=== PATIENT | female | born 1970 | race American Indian/Alaskan Native ===

== ENCOUNTER 2021-02-02 16:56 | Emergency (ER) | payer SELFPAY ==
--- NOTE | 2021-02-02 18:51 | Emergency Department Report ---
ED Back Pain/Injury HPI - General Chief Complaint: Extremity Injury, Lower Stated Complaint: BACK PAIN Time Seen by Provider: 02/02/21 18:37 Source: patient Limitations: No Limitations - History of Present Illness Initial Comments: Patient is a 50-year-old female emergency room with complaints of sciatica exacerbation that began yesterday. She states that she has a history of left- sided sciatica. She states that she has been seeing her primary care doctor and is currently taking medications but she is not sure what she is taking. She states that she has been on these medications for several months. She states that the pain is in her left lower back and radiates down her left leg. She denies any fall or injury. She denies any fever, nausea, vomiting, diarrhea, urinary symptoms, abdominal pain, numbness, weakness, bowel or bladder incontinence, saddle numbness. She denies any other past medical history. No allergies to medications. She denies any history of diabetes. - Related Data Previous Rx's Medication Instructions Recorded Last Taken Type Menthol/Camphor [[place] 1 applicatio TP BID #18 oint...g. 02/02/21 Unknown Rx Ointment] Prednisone [predniSONE 10 mg 10 mg PO .TAPER #1 tab.ds.pk 02/02/21 Unknown Rx (6-Day Pack, 21 Tabs)] methOCARBAMOL [Robaxin TAB] 500 mg PO BID PRN #20 tab 02/02/21 Unknown Rx traMADoL [Ultram 50 MG tab] 50 mg PO Q6HR PRN #12 tablet 02/02/21 Unknown Rx Allergies Allergy/AdvReac Type Severity Reaction Status Date / Time No Known Allergies Allergy Verified 02/02/21 17:27 ED Review of Systems ROS: Stated complaint: BACK PAIN Other details as noted in HPI Comment: All other systems reviewed and negative ED Past Medical Hx - Medications Home Medications: Home Medications Medication Instructions Recorded Confirmed Last Taken Type Menthol/Camphor [[place] 1 applicatio TP BID #18 oint...g. 02/02/21 Unknown Rx Ointment] Prednisone [predniSONE 10 mg 10 mg PO .TAPER #1 tab.ds.pk 02/02/21 Unknown Rx (6-Day Pack, 21 Tabs)] methOCARBAMOL [Robaxin TAB] 500 mg PO BID PRN #20 tab 02/02/21 Unknown Rx traMADoL [Ultram 50 MG tab] 50 mg PO Q6HR PRN #12 tablet 02/02/21 Unknown Rx ED Physical Exam - General Limitations: No Limitations General appearance: alert, in no apparent distress - Head Head exam: Present: atraumatic, normocephalic - Eye Eye exam: Present: normal appearance - ENT ENT exam: Present: mucous membranes moist - Neck Neck exam: Present: normal inspection, full ROM. Absent: tenderness, meningismus - Respiratory Respiratory exam: Present: normal lung sounds bilaterally. Absent: respiratory distress, wheezes, rales, rhonchi, stridor, chest wall tenderness, accessory muscle use, decreased breath sounds, prolonged expiratory - Cardiovascular Cardiovascular Exam: Present: regular rate, normal rhythm, normal heart sounds. Absent: systolic murmur, diastolic murmur, rubs, gallop - Back Exam Back exam: Present: normal inspection, full ROM, paraspinal tenderness (left lumbar paraspinal ttp, no midline C-spine, T-spine or L-spine ttp, no step offs, no deformities ). Absent: vertebral tenderness - Neurological Exam Neurological exam: Present: alert, oriented X3, CN II-XII intact, normal gait. Absent: motor sensory deficit - Psychiatric Psychiatric exam: Present: normal affect, normal mood - Skin Skin exam: Present: warm, dry, intact ED Course Vital Signs 02/02/21 17:27 Temperature 98.6 F Pulse Rate 98 H Respiratory 12 Rate Blood Pressure 141/102 [Left] O2 Sat by Pulse 100 Oximetry ED Medical Decision Making - Medical Decision Making Patient is a 50-year-old female emergency room with complaints of sciatica exacerbation that began yesterday. She states that she has a history of left- sided sciatica. She states that she has been seeing her primary care doctor and is currently taking medications but she is not sure what she is taking. She states that she has been on these medications for several months. She states that the pain is in her left lower back and radiates down her left leg. She denies any fall or injury. She denies any fever, nausea, vomiting, diarrhea, urinary symptoms, abdominal pain, numbness, weakness, bowel or bladder incontinence, saddle numbness. She denies any other past medical history. No allergies to medications. She denies any history of diabetes. VSS. on exam: left lumbar paraspinal ttp, no midline C-spine, T-spine or L-spine ttp, no step offs, no deformities, no focal neuro deficits. Patient has no red flag warning signs of back pain, no trauma, no unexplained weight loss, no fever, no IV drug use, no steroid use, no history of cancer. She has no midline tenderness, no step-offs, no deformities, she is ambulatory without difficulty. Patient given prescription for medications. Advised patient Please use medication as prescribed. Do not drive or operate machinery while taking muscle relaxer or severe pain medication. May use ice pack, heating pad, rest, epsom salt bath. Follow-up with a primary care doctor. Follow-up with orthopedic/spine doctor. Do not use heat or ice while using tiger balm. Return to emergency room for new or worsening symptoms. Critical care attestation.: If time is entered above; I have spent that time in minutes in the direct care of this critically ill patient, excluding procedure time. ED Disposition Clinical Impression: Low back pain Qualifiers: Chronicity: acute Back pain laterality: left Sciatica presence: with sciatica Sciatica laterality: sciatica of left side Qualified Code(s): M54.42 - Lumbago with sciatica, left side Disposition: - TO HOME OR SELFCARE Is pt being admited?: No Does the pt Need Aspirin: No Condition: Stable Instructions: Sciatica Additional Instructions: Please use medication as prescribed. Do not drive or operate machinery while taking muscle relaxer or severe pain medication. May use ice pack, heating pad, rest, epsom salt bath. Follow-up with a primary care doctor. Follow-up with orthopedic/spine doctor. Do not use heat or ice while using tiger balm. Return to emergency room for new or worsening symptoms. Prescriptions: Prednisone [predniSONE 10 mg (6-Day Pack, 21 Tabs)] 10 mg PO .TAPER #1 tab.ds.pk methOCARBAMOL [Robaxin TAB] 500 mg PO BID PRN #20 tab PRN Reason: muscle spasm/pain Menthol/Camphor [[place] Ointment] 1 applicatio TP BID #18 oint...g. traMADoL [Ultram 50 MG tab] 50 mg PO Q6HR PRN #12 tablet PRN Reason: Pain , Severe (7-10) Referrals: [facility] [Provider Group] - 3-5 Days LUIZ ARCHER II, MD [Staff Physician] - 3-5 Days Time of Disposition: 18:49 Print Language: AFGHAN
== END 2021-02-02 19:06 | disposition home or self-care (01) ==
LOC: ED 16:56
CPT/HCPCS: 99281

== ENCOUNTER 2021-02-10 18:47 | Emergency (ER) | payer MEDICAID ==
--- NOTE | 2021-02-10 21:15 | Emergency Department Report ---
- General Chief complaint: Wound/Laceration Stated complaint: BEE STING Time Seen by Provider: 02/10/21 20:57 Source: patient Mode of arrival: Ambulatory Limitations: No Limitations - History of Present Illness Initial comments: Patient is a 50-year-old female presents emergency room with complaints of a sting present to the left upper arm that occurred earlier today. She states that she believes it was a hornet. She states that she was concerned that the stinger may still be in the arm. She denies any rash, swelling, itching, fever, vomiting. She denies any medication allergies. - Related Data Previous Rx's Medication Instructions Recorded Last Taken Type Menthol/Camphor [[place] 1 applicatio TP BID #18 oint...g. 02/02/21 Unknown Rx Ointment] Prednisone [predniSONE 10 mg 10 mg PO .TAPER #1 tab.ds.pk 02/02/21 Unknown Rx (6-Day Pack, 21 Tabs)] methOCARBAMOL [Robaxin TAB] 500 mg PO BID PRN #20 tab 02/02/21 Unknown Rx traMADoL [Ultram 50 MG tab] 50 mg PO Q6HR PRN #12 tablet 02/02/21 Unknown Rx Allergies Allergy/AdvReac Type Severity Reaction Status Date / Time No Known Allergies Allergy Verified 02/02/21 17:27 Abscess Boil HPI - HPI Chief Complaint: Wound/Laceration Stated Complaint: BEE STING Time Seen by Provider: 02/10/21 20:57 Home Medications: Previous Rx's Medication Instructions Recorded Last Taken Type Menthol/Camphor [[place] 1 applicatio TP BID #18 oint...g. 02/02/21 Unknown Rx Ointment] Prednisone [predniSONE 10 mg 10 mg PO .TAPER #1 tab.ds.pk 02/02/21 Unknown Rx (6-Day Pack, 21 Tabs)] methOCARBAMOL [Robaxin TAB] 500 mg PO BID PRN #20 tab 02/02/21 Unknown Rx traMADoL [Ultram 50 MG tab] 50 mg PO Q6HR PRN #12 tablet 02/02/21 Unknown Rx Allergies/Adverse Reactions: Allergies Allergy/AdvReac Type Severity Reaction Status Date / Time No Known Allergies Allergy Verified 02/02/21 17:27 ED Review of Systems ROS: Stated complaint: BEE STING Other details as noted in HPI Comment: All other systems reviewed and negative ED Past Medical Hx - Past Medical History Previous Medical History?: Yes - Surgical History Past Surgical History?: Yes - Social History Smoking Status: Never Smoker Substance Use Type: None - Medications Home Medications: Home Medications Medication Instructions Recorded Confirmed Last Taken Type Menthol/Camphor [[place] 1 applicatio TP BID #18 oint...g. 02/02/21 Unknown Rx Ointment] Prednisone [predniSONE 10 mg 10 mg PO .TAPER #1 tab.ds.pk 02/02/21 Unknown Rx (6-Day Pack, 21 Tabs)] methOCARBAMOL [Robaxin TAB] 500 mg PO BID PRN #20 tab 02/02/21 Unknown Rx traMADoL [Ultram 50 MG tab] 50 mg PO Q6HR PRN #12 tablet 02/02/21 Unknown Rx ED Physical Exam - General Limitations: No Limitations General appearance: alert, in no apparent distress - Head Head exam: Present: atraumatic, normocephalic - Eye Eye exam: Present: normal appearance - ENT ENT exam: Present: mucous membranes moist - Respiratory Respiratory exam: Absent: respiratory distress, accessory muscle use - Neurological Exam Neurological exam: Present: alert, oriented X3 - Psychiatric Psychiatric exam: Present: normal affect, normal mood - Skin Skin exam: Present: warm, dry, other (2 mm abrasion present to the left deltoid region, no erythema, no signs of stinger, no drainage, no rash) ED Course Vital Signs 02/10/21 02/11/21 19:43 00:11 Temperature 98.8 F Pulse Rate 111 H 89 Respiratory 18 16 Rate Blood Pressure 150/101 Blood Pressure 143/90 [Right] O2 Sat by Pulse 99 100 Oximetry ED Medical Decision Making - Lab Data Vital Signs 02/10/21 02/11/21 19:43 00:11 Temperature 98.8 F Pulse Rate 111 H 89 Respiratory 18 16 Rate Blood Pressure 150/101 Blood Pressure 143/90 [Right] O2 Sat by Pulse 99 100 Oximetry - Medical Decision Making Patient is a 50-year-old female presents emergency room with complaints of a sting present to the left upper arm that occurred earlier today. She states that she believes it was a hornet. She states that she was concerned that the stinger may still be in the arm. She denies any rash, swelling, itching, fever, vomiting. She denies any medication allergies. on exam: 2 mm abrasion present to the left deltoid region, no erythema, no signs of stinger, no drainage, no rash. No signs of allergic reaction, no signs of infection, no signs of localized reaction, no signs of stinger left in arm. Advised patient May use cortisone ointment [id number]. Follow-up with a primary care doctor. Return to emergency room for any new or symptoms. Critical care attestation.: If time is entered above; I have spent that time in minutes in the direct care of this critically ill patient, excluding procedure time. ED Disposition Clinical Impression: Insect sting Qualifiers: Encounter type: initial encounter Injury intent: accidental or unintentional Qualified Code(s): T63.481A - Toxic effect of venom of other arthropod, accidental (unintentional), initial encounter Disposition: TO HOME OR SELFCARE Is pt being admited?: No Does the pt Need Aspirin: No Condition: Stable Instructions: Bee, Wasp, or Hornet Sting, Adult Additional Instructions: May use cortisone ointment [id number]. Follow-up with a primary care doctor. Return to emergency room for any new or symptoms. Referrals: CAMERON JUAREZ MD [Staff Physician] - 3-5 Days [facility] [Provider Group] - 3-5 Days Time of Disposition: 21:15 Print Language: [place]
[2021-02-11 00:12] VITALS: BP 143/90
== END 2021-02-10 21:35 | disposition home or self-care (01) ==
LOC: ED 18:47
DX: S40.862A Insect bite (nonvenomous) of left upper arm, initial encounter (principal); Z98.890 Other specified postprocedural states; Z79.899 Other long term (current) drug therapy; W57.XXXA Bitten or stung by nonvenomous insect and other nonvenomous arthropods, initial encounter; Y93.89 Activity, other specified; Y92.89 Other specified places as the place of occurrence of the external cause; Y99.8 Other external cause status
CPT/HCPCS: 99282